=== PATIENT | female | born 1935 | race Caucasian/White ===

== ENCOUNTER 2016-11-25 19:50 | Emergency (ER) | payer MEDICARE, OTHER ==
[~2016-11-25 19:50] MED LIST: ANTACID PO; ARICEPT10 MG PO; ASPIR-LOW81 MG PO; BISCOLAX10 MG PR; CLONAZEPAM0.5 MG PO; COLACE 100MG C100 MG PO; CRANBERRY405 MG PO; DEPAKOTE SPRIN125 M1 PO; DULCOLAX10 MG PR; FERROUS GLUCON324 MG PO; GAS RELIEF 8080 MG PO; IBUPROFEN600 MG PO; LACTULOSE10 GM/15 M PO; LIPITOR TAB 2020 MG PO; LOPRESSOR 25 MG25 MG PO; LORTAB 5-325 M1 EACH PO; MIRTAZAPINE7.5 MG PO; MULTIVITAMINS1 EAC1 PO; NAMENDA10 MG PO; NEURONTIN 400400 MG PO; OMEPRAZOLE20 MG PO; PHENERGAN25 MG/1 M1 IM; REFRESH PLUS 0.41 EA OU; SALINE MIST45 ML; SERTRALINE HCL100 MG PO; TYLENOL 500 MG500 MG PO; VITAMIN B-1000 MCG/M IM; VITAMIN D50000 UNIT PO; ZOFRAN ODT 4 MG4 MG PO
[2016-11-25 22:27] LABS: HEMOGLOBIN 11.7 gm/dl (12.3-15.3); RED BLOOD COUNT 3.81 M/UL (4.00-5.10)
== END 2016-11-26 00:03 | disposition home or self-care (01) ==
LOC: ER1 19:50
PROVIDERS: Emergency Medicine
DX: N30.00 Acute cystitis without hematuria (principal); N28.9 Disorder of kidney and ureter, unspecified; F03.90 Unspecified dementia, unspecified severity, without behavioral disturbance, psychotic disturbance, mood disturbance, and anxiety; Z88.2 Allergy status to sulfonamides
CPT/HCPCS: 36415; 80048; 81001; 85025; 87086; 99283

== ENCOUNTER 2021-02-19 15:08 | Emergency (ER) | payer MEDICARE, OTHER ==
[2021-02-19 15:44] LABS: HEMOGLOBIN 13.8 gm/dl (12.3-15.3); RED BLOOD COUNT 4.25 M/UL (4.00-5.10); WHITE BLOOD COUNT 5.9 K/UL (4.5-11.0)
[2021-02-19 16:07] LABS: BUN/CREATININE RATIO 46 (0-10)
== END 2021-02-19 22:31 | disposition home or self-care (01) ==
LOC: ER1 15:08
PROVIDERS: Physician Assistant
DX: R10.9 Unspecified abdominal pain (principal); R11.0 Nausea
CPT/HCPCS: 71045; 80053; 81001; 82550; 82553; 83605; 83690; 83735; 83874; 84484; 85025; 87077; 87086; 87186; 99284; J7030